=== PATIENT | female | born 1975 | race Caucasian/White ===

== ENCOUNTER 2016-12-08 23:52 | Emergency (ER) | payer SELFPAY ==
[2016-12-09 00:47] LABS: BASOPHILS 0.3 % (0-2); EOSINOPHILS 2.6 % (0-7); HEMATOCRIT 28.1 % (36.0-48.0); HEMOGLOBIN 9.2 g/dL (12-16); IMMATURE GRANULOCYTES 0.1 % (0-5); LYMPHOCYTES 26.7 % (15-50); MCH 28.5 pg (26.0-34.0); MCHC 32.7 g/dL (31.0-37.0); MEAN PLATELET VOLUME 10.7 fL (7.4-10.4); NEUTROPHILS 63.3 % (40-80); PLATELET COUNT 288 10x3/uL (130-400); RBC 3.23 10x6/uL (4.00-5.40); RDW 12.4 % (11.5-14.5); WBC 9.1 10x3/uL (4.8-10.8)
[2016-12-09 00:54] LABS: ALBUMIN 3.1 g/dL (3.4-5.0); ALKALINE PHOSPHATASE 66 U/L (46-116); ALT (SGPT) 15 U/L (10-68); CALC OSMOLALITY 278 mosm/kg (275-300); CALCIUM 8.2 mg/dL (8.5-10.1); CARBON DIOXIDE 29.2 mmol/L (21.0-32.0); CHLORIDE - SERUM 106 mmol/L (98-107); CREATININE - SERUM 0.8 mg/dL (0.6-1.3); GLUCOSE 87 mg/dL (74-106); POTASSIUM - SERUM 3.7 mmol/L (3.5-5.1); PROTEIN - SERUM 6.6 g/dL (6.4-8.2); SODIUM 140 mmol/L (136-145); UREA NITROGEN 14 mg/dL (7-18); eGFR NON AFRICAN AMERICAN 84 mL/min (90-120)
[2016-12-09 00:55] LABS: BILIRUBIN - TOTAL 0.08 mg/dL (0.2-1.3)
== END 2016-12-09 01:16 | disposition home or self-care (01) ==
LOC: D.ER 23:52
PROVIDERS: Emergency Medicine
DX: N93.9 Abnormal uterine and vaginal bleeding, unspecified (principal); D64.9 Anemia, unspecified

== ENCOUNTER 2016-12-13 02:26 | Emergency (ER) | payer SELFPAY | END 2016-12-13 03:44 | disposition home or self-care (01) | LOC: D.ER 02:26 | DX: D50.0 Iron deficiency anemia secondary to blood loss (chronic) (principal); N93.9 Abnormal uterine and vaginal bleeding, unspecified; N94.6 Dysmenorrhea, unspecified; F17.200 Nicotine dependence, unspecified, uncomplicated ==

== ENCOUNTER 2020-05-19 16:33 | Observation (INO) | payer MEDICAID ==
[~2020-05-19] VITALS: Ht 175.3 cm; Wt 92.7 kg
[2020-05-19] MEDS ORDERED: XANAX0.5 MG PO (17:01)
[2020-05-19 18:15] LABS: BASOPHILS 0.5 % (0-2); EOSINOPHILS 2.5 % (0-7); HEMATOCRIT 23.2 % (36.0-48.0); IMMATURE GRANULOCYTES 0.2 % (0-5); LYMPHOCYTE ABS# 2.49 10x3/uL (1.18-3.74); LYMPHOCYTES 26.9 % (15-50); MCHC 27.2 g/dL (31.0-37.0); MCV 65.2 fL (80.0-100.0); MEAN PLATELET VOLUME 9.4 fL (7.4-10.4); MONOCYTES 7.2 % (2-11); NEUTROPHILS 62.7 % (40-80); RBC 3.56 10x6/uL (4.00-5.40); RDW 16.9 % (11.5-14.5); WBC 9.3 10x3/uL (4.8-10.8)
[2020-05-19 18:29] LABS: CALC OSMOLALITY 273 mosm/kg (275-300); CALCIUM 8.5 mg/dL (8.5-10.1); CARBON DIOXIDE 27.4 mmol/L (21.0-32.0); CHLORIDE - SERUM 102 mmol/L (98-107); CREATININE - SERUM 0.8 mg/dL (0.6-1.3); GLUCOSE 89 mg/dL (74-106); POTASSIUM - SERUM 3.2 mmol/L (3.5-5.1); SODIUM 137 mmol/L (136-145); UREA NITROGEN 14 mg/dL (7-18); eGFR NON AFRICAN AMERICAN 83 mL/min (90-120)
[2020-05-19 18:30] LABS: HCG SERUM NEGATIVE (NEGATIVE)
[2020-05-19 18:36] LABS: ALBUMIN 3.9 g/dL (3.4-5.0); ALKALINE PHOSPHATASE 86 U/L (30-120); ALT (SGPT) 21 U/L (10-68); BILIRUBIN - TOTAL 0.14 mg/dL (0.2-1.3); PROTEIN - SERUM 7.6 g/dL (6.4-8.2)
[2020-05-19 18:41] LABS: HEMOGLOBIN 6.3 g/dL (12-16); MCH 17.7 pg (26.0-34.0); PLATELET COUNT 417 10x3/uL (130-400)
--- NOTE | 2020-05-19 22:11 | NUR ---
PT NOW BACK FROM US, YESI PERFORMED VAG EXAM, PT TOLERATED WELL, NO BIG CLOTS AT THIS TIME
--- NOTE | 2020-05-19 22:50 | NUR ---
PT TO LABOR UNIT VIA WHEELCHAIR FROM ER. TO ROOM 1274.
--- NOTE | 2020-05-19 22:53 | NUR ---
PT TO BATHROOM, NO VAGINAL BLEEDING NOTED. PT GIVEN A PAD AND INSTRUCTED TO CALL ME WHEN SHE DISCARDS ANY OF HER PADS SO I CAN GET AN ACCURATE BLOOD LOSS. PT VERBALIZES UNDERSTANDING.
[2020-05-19 22:55] VITALS: BP 121/57
--- NOTE | 2020-05-19 22:55 | NUR ---
TRANSFUSION STARTED AT 50ML/HR.
--- NOTE | 2020-05-19 22:55 | NUR ---
PATIENT NAME,,BLOOD BAND NUMBER, BLOOD TYPE, UNIT NUMBER,TYPE AND EXPIRATION ALL REVIEWED AND VERIFIED WITH JAZLYN STRINGER AT THIS TIME. BLOOD TRANSFUSION STARTED AT THIS TIME.
[2020-05-19 22:59] VITALS: BP 121/57; Ht 175.3 cm; Wt 92.7 kg
[2020-05-19 23:10] VITALS: BP 116/55
--- NOTE | 2020-05-19 23:10 | NUR ---
NO REACTION NOTED, TRANSFUSION RATE CHANGED TO 75ML/HR.
--- NOTE | 2020-05-19 23:21 | NUR ---
DR MORALEZ PAGED WITH IMMEDIATE CALL BACK, REPORTED PT REQUEST FOR HOME MEDICATION OF XANAX 0.5MG PO QHS, NEW ORDERS NOTED.
[2020-05-19 23:25] VITALS: BP 96/51
--- NOTE | 2020-05-19 23:25 | NUR ---
NO REACTION NOTED, TRANSFUSION RATE INCREASED TO 125ML/HR.
--- NOTE | 2020-05-19 23:35 | NUR ---
XANAX 0.5MG PO PER PT REQUEST AND MD ORDER. SPRITE,CHICKEN BROTH AND JELLO PROVIDED. PT TALKING ON THE PHONE WITH FAMILY, NO FURTHER NEEDS IDENTIFIED. BED LOCKED IN LOW POSITION AND SIDE RAILS UPX2. CALL SLOAN AND TRAY TABLE IN REACH.
--- NOTE | 2020-05-20 00:09 | NUR ---
NO REACTION NOTED, TRANSFUSION RATE CHANGED TO 150ML/HR. PATIENT ASSISTED UP TO BATHROOM, VOIDED WITHOUT DIFFICULTY, TWO SMALL CLOTS NOTED IN TOILET AND PTS PERIPAD WITH SMALL AMOUNT OF BLOOD NOTED. CLEAN PAD AND PANTIES PROVIDED. PT BACK TO BED. NO FURTHER NEEDS IDENTIFIED. WILL CONTINUE TO MONITOR.
--- NOTE | 2020-05-20 01:10 | NUR ---
PATIENT SLEEPING AT THIS TIME, RESPIRATIONS EVEN AND NON LABORED. BLOOD CONTINUES TO INFUSE WITH NO REACTIONS NOTED.
--- NOTE | 2020-05-20 01:55 | NUR ---
BLOOD TRANSFUSION COMPLETED, NO REACTIONS NOTED. PT RESTING QUIETLY WITH EYES CLOSED AND EVEN RESPIRATIONS. IV FLUSHED WITH 10 ML NS AND SALINE LOCKED.
--- NOTE | 2020-05-20 02:38 | NUR ---
PT NAME,,BLOOD WRIST BAND NUMBER, BLOOD TYPE, UNIT NUMBER,TYPE AND EXPIRATION ALL VERIFIED AT THIS TIME WITH JAZLYN STRINGER.
--- NOTE | 2020-05-20 02:44 | NUR ---
BLOOD TRANSFUSION INITIATED AT 50ML/HR.
--- NOTE | 2020-05-20 02:59 | NUR ---
NO TRANSFUSION REACTION NOTED, INFUSION RATE CHANGE TO 75ML/HR
--- NOTE | 2020-05-20 03:15 | NUR ---
NO TRANSFUSION REACTION NOTED, RESPIRATIONS EVEN AND NON LABORED. INFUSION RATE CHANGED TO 150ML/HR
--- NOTE | 2020-05-20 04:15 | NUR ---
PATIENT RESTING WITH EYES CLOSED, AUDIBLE SNORING NOTED. NO DISTRESS, WILL CONTINUE TO MONITOR.
--- NOTE | 2020-05-20 04:58 | NUR ---
PATIENT CONTINUES TO SLEEP WITH AUDIBLE SNORING. NO DISTRESS NOTED. BLOOD TRANSFUSION COMPLETED, IV FLUSHED WITH NORMAL SALINE. NO NEEDS IDENTIFIED.
--- NOTE | 2020-05-20 07:00 | NUR ---
report to am shift to assume pt care.
--- NOTE | 2020-05-20 07:45 | NUR ---
ROUNDS MADE BY DR MORALEZ.
[2020-05-20 08:20] LABS: BASOPHILS 0.9 % (0-2); EOSINOPHILS 4.3 % (0-7); HEMATOCRIT 24.6 % (36.0-48.0); IMMATURE GRANULOCYTES 0.2 % (0-5); LYMPHOCYTE ABS# 1.99 10x3/uL (1.18-3.74); LYMPHOCYTES 33.8 % (15-50); MCH 20.5 pg (26.0-34.0); MCHC 29.3 g/dL (31.0-37.0); MEAN PLATELET VOLUME 9.4 fL (7.4-10.4); MONOCYTES 8.8 % (2-11); NEUTROPHIL ABS# 3.06 10x3/uL (1.56-6.13); RBC 3.51 10x6/uL (4.00-5.40); RDW 21.2 % (11.5-14.5)
[2020-05-20 08:29] LABS: WBC 5.9 10x3/uL (4.8-10.8)
[2020-05-20 08:30] LABS: HEMOGLOBIN 7.2 g/dL (12-16); MCV 70.1 fL (80.0-100.0); PLATELET COUNT 307 10x3/uL (130-400)
--- NOTE | 2020-05-20 10:05 | NUR ---
PT SITTING UP IN BED WATCHING TV, DENIES PAIN OR DISCOMFORT. STATES THAT WHEN SHE GOT UP TO BATHROOM THERE WAS NO BLEEDING, ALSO DENIES DIZZINESS OR FELLING FAINT WHEN GETTING UP FROM BED/WALKING. CALL LIGHT AND PHONE WITHIN REACH.
--- NOTE | 2020-05-20 10:56 | NUR ---
LAB AND US RESULTS RECEIVED. DR MORALEZ PAGED.
--- NOTE | 2020-05-20 13:00 | NUR ---
ORDERS RECEIVED BY PHONE FROM DR MORALEZ, PT IS TO RECIEVE 1UNIT PRBC THAN JULY D/C HOME AND TO FOLLOW UP WITH MD AT [facility].
--- NOTE | 2020-05-20 13:30 | NUR ---
PLAN OF CARE GONE OVER WITH PT. SHE DENIES ANY CONCERNS OR QUESTIONS AT THIS TIME. LIGHT TURNED OFF REQUESTED.
--- NOTE | 2020-05-20 14:40 | NUR ---
NOTIFIED FROM BLOOD BANK THAT UNIT IS READY.
--- NOTE | 2020-05-20 15:15 | NUR ---
PRBC VERIFIED WITH Kadi SHAIKH RN AT BEDSIDE.
--- NOTE | 2020-05-20 15:30 | NUR ---
PRBC INFUSING AT 100ML/HR X 50ML. VSS. PT PROVIDED WITH LARGE CUP OF ICE AND COLA REQUESTED.
--- NOTE | 2020-05-20 15:40 | NUR ---
PT DENIES ANY DISCOMFORT, INFUSING INCREASED TO 200ML/HR. LIGHTS TURNED OFF REQUESTED. CALL LIGHT IN REACH AND SIDE RAILS UP X 2.
[2020-05-20 16:00] VITALS: BP 109/58
--- NOTE | 2020-05-20 16:00 | NUR ---
PT TEXTING ON HER PHONE, DENIES PAIN OR DISCOMFORT AT THIS TIME AND VOICES NO NEEDS. CALL LIGHT IN REACH.
--- NOTE | 2020-05-20 17:00 | NUR ---
TRANSFUSION COMPLETED AND FLUSHED WITH 100ML NS WITHOUT DIFFICULTY. IV REMOVED WITH CATH INTACT. PT ASKING IF SHE COULD EAT HER DINNER AND SHOWER BEFORE DISCHARGED. REASSURED HER THAT WAS NOT A PROBLEM. PROVIDED HER WITH TOWELS AND SHOWER SUPPLIES. INSTRUCTED TO CALL WHEN READY FOR D/C INSTRUCTIONS.
--- NOTE | 2020-05-20 18:30 | NUR ---
PT CALLS OUT THAT SHE IS READY FOR DISCHARGE. VERBAL AND WRITTEN INSTRUCTIONS GONE OVER WITHOUT QUESTIONS OR CONCERNS. TAKEN OUT BY WHEELCHAIR, HOME BY PRIVATE CAR WITH FAMILY MEMBER
== END 2020-05-20 18:30 | disposition home or self-care (01) ==
LOC: D.ER 16:33 → OBSVTIME 21:47 → D.ER 21:47 → D.EDHOLD 21:47 → D.LD 21:47 → D.EDHOLD 21:47 → D.LD 21:53 → D.EDHOLD 21:53 → D.LD 05-20 18:30 → D.EDHOLD 05-20 18:30
PROVIDERS: Family Medicine; ADMIT Obstetrics & Gynecology; ATTEND Obstetrics & Gynecology
DX: N93.8 Other specified abnormal uterine and vaginal bleeding (principal); D64.9 Anemia, unspecified

== ENCOUNTER 2020-05-25 18:26 | Emergency (ER) | payer OTHER ==
[~2020-05-25] VITALS: Ht 175.3 cm; Wt 92.7 kg
[~2020-05-25 18:26] MED LIST: XANAX0.5 MG PO
[2020-05-25 18:30] VITALS: Ht 175.3 cm; Wt 92.7 kg
[2020-05-25 18:57] LABS: BASOPHILS 0.5 % (0-2); EOSINOPHILS 2.8 % (0-7); HEMATOCRIT 32.8 % (36.0-48.0); HEMOGLOBIN 9.6 g/dL (12-16); IMMATURE GRANULOCYTES 0.1 % (0-5); LYMPHOCYTE ABS# 2.42 10x3/uL (1.18-3.74); LYMPHOCYTES 30.9 % (15-50); MCH 21.1 pg (26.0-34.0); MCHC 29.3 g/dL (31.0-37.0); MCV 71.9 fL (80.0-100.0); MEAN PLATELET VOLUME 9.5 fL (7.4-10.4); MONOCYTES 7.3 % (2-11); NEUTROPHIL ABS# 4.57 10x3/uL (1.56-6.13); NEUTROPHILS 58.4 % (40-80); PLATELET COUNT 332 10x3/uL (130-400); RBC 4.56 10x6/uL (4.00-5.40); RDW 23.2 % (11.5-14.5); WBC 7.8 10x3/uL (4.8-10.8)
[2020-05-25 19:08] LABS: ANION GAP 8.2 mmol/L (8-16); CALCIUM 8.6 mg/dL (8.5-10.1); CARBON DIOXIDE 28.6 mmol/L (21.0-32.0); CREATININE - SERUM 0.9 mg/dL (0.6-1.3); POTASSIUM - SERUM 3.8 mmol/L (3.5-5.1)
[2020-05-25 19:11] LABS: HCG SERUM NEGATIVE (NEGATIVE)
[2020-05-25 19:14] LABS: ALBUMIN 3.6 g/dL (3.4-5.0); BILIRUBIN - TOTAL 0.23 mg/dL (0.2-1.3); PROTEIN - SERUM 7.6 g/dL (6.4-8.2)
[2020-05-25 22:52] VITALS: BP 109/62
== END 2020-05-25 22:53 | disposition home or self-care (01) ==
LOC: D.ER 18:26
PROVIDERS: Family Medicine
DX: N93.9 Abnormal uterine and vaginal bleeding, unspecified (principal); R53.1 Weakness

== ENCOUNTER → 2020-05-27 12:13 | Outpatient (CLI) | payer OTHER ==
[2020-05-25 18:30] VITALS: BMI 30.2
[2020-05-27 13:15] LABS: BASOPHILS 0.5 % (0-2); EOSINOPHILS 2.3 % (0-7); HEMATOCRIT 32.8 % (36.0-48.0); HEMOGLOBIN 9.5 g/dL (12-16); LYMPHOCYTE ABS# 1.74 10x3/uL (1.18-3.74); LYMPHOCYTES 28.2 % (15-50); MCH 21.2 pg (26.0-34.0); MCV 73.2 fL (80.0-100.0); MONOCYTES 6.3 % (2-11); NEUTROPHIL ABS# 3.87 10x3/uL (1.56-6.13); NEUTROPHILS 62.7 % (40-80); PLATELET COUNT 293 10x3/uL (130-400); RBC 4.48 10x6/uL (4.00-5.40); RDW 23.1 % (11.5-14.5); WBC 6.2 10x3/uL (4.8-10.8)
[2020-05-27 13:32] LABS: INR 1.12 (0.85-1.17); PROTIME 13.4 SECONDS (11.6-15.0)
[2020-05-27 13:33] LABS: APTT 28.2 SECONDS (22.8-39.4)
== END | disposition home or self-care (01) ==
LOC: D.LAB 12:13
PROVIDERS: ATTEND Obstetrics & Gynecology
DX: Z01.419 Encounter for gynecological examination (general) (routine) without abnormal findings (principal)

== ENCOUNTER 2020-05-28 10:35 | Day surgery (SDC) | payer OTHER ==
[~2020-05-28] VITALS: Ht 175.3 cm; Wt 90.3 kg
--- NOTE | ~2020-05-28 | OP ---
PATIENT NAME: CHERRIE RIDDLE MEDICAL RECORD: [id number] :77 LOCATION:.[facility] ADMISSION DATE: SURGEON: MAO TRUJILLO MD DATE OF OPERATION: 05/28/2020 PREOPERATIVE DIAGNOSES: 1. Menorrhagia. 2. Anemia. POSTOPERATIVE DIAGNOSES: 1. Menorrhagia. 2. Anemia. PROCEDURE: Hysteroscopy, D&C. SURGEON: Mao Trujillo. ANESTHESIA: General endotracheal. INTRAVENOUS FLUIDS: Per anesthesia record. ESTIMATED BLOOD LOSS: 1000 cc. FINDINGS: Proliferative appearing endometrium as well as grossly normal-appearing external genitalia. DESCRIPTION OF PROCEDURE: The patient was taken to the operating room where general anesthesia was achieved without difficulty. The patient was then prepped and draped in normal sterile fashion in the dorsal lithotomy position in the [facility]. The patient was then straight catheterized for approximately 100 cc of clear yellow urine. At this point, a Graves speculum was placed into the vagina and the cervix was grasped on its anterior lip with single tooth tenaculum. The uterus sounded to approximately 9 cm. At this point, the patient was dilated to approximately 5 cm and the hysteroscope was introduced into the uterus. Survey of the proliferative appearing endometrium was performed and then a D&C was performed in all 4 quadrants with copious return of proliferative appearing tissue. Only scant bleeding was noted by the end of the case. A second look was performed with the hysteroscope following the curettage and no evidence of perforation was noted. The tenaculum and speculum was removed. The patient tolerated the procedure well and was transported to postanesthesia recovery stable without incident. TRANSINT:[id number] Voice Confirmation ID: [id number] DOCUMENT ID: [id number] MAO TRUJILLO MD CC: [id number] DICTATION DATE: 06/04/20 0831 BIOLOGICAL SCIENCE AIDE: 06/04/20 1018 [facility] 05/28/20 [place] [id number] [place] [id number]
[2020-05-28 12:14] VITALS: BP 122/65; Ht 175.3 cm; Wt 90.3 kg
--- NOTE | 2020-05-28 14:46 | NUR ---
PT RATES PAIN "MEDIUM", STATES "I DON'T WANT ANYTHING FOR PAIN"
--- NOTE | 2020-05-28 14:55 | NUR ---
PT NOW REQUESTS PAIN MEDICATION
--- NOTE | 2020-05-28 15:50 | NUR ---
1545 IV REMOVED AND PRESSURE HELD
== END 2020-05-28 16:10 | disposition home or self-care (01) ==
LOC: D.OPS 10:35
PROVIDERS: ATTEND Obstetrics & Gynecology
DX: N92.1 Excessive and frequent menstruation with irregular cycle (principal); D64.9 Anemia, unspecified

== ENCOUNTER 2020-06-17 15:38 | Inpatient (IN) | payer OTHER ==
[~2020-06-17] VITALS: Ht 175.3 cm; Wt 91.4 kg
[2020-06-17 12:00] LABS: CALC OSMOLALITY 276 mosm/kg (275-300); CALCIUM 8.9 mg/dL (8.5-10.1); CARBON DIOXIDE 28.4 mmol/L (21.0-32.0); CHLORIDE - SERUM 104 mmol/L (98-107); CREATININE - SERUM 0.7 mg/dL (0.6-1.3); GLUCOSE 89 mg/dL (74-106); SODIUM 139 mmol/L (136-145); UREA NITROGEN 13 mg/dL (7-18); eGFR NON AFRICAN AMERICAN > 90 mL/min (90-120)
[2020-06-17 12:01] LABS: HEMATOCRIT 32.1 % (36.0-48.0); HEMOGLOBIN 9.3 g/dL (12-16); LYMPHOCYTES 39.6 % (15-50); MCH 21.8 pg (26.0-34.0); MCV 75.2 fL (80.0-100.0); MEAN PLATELET VOLUME 10.3 fL (7.4-10.4); NEUTROPHILS 50.7 % (40-80); PLATELET COUNT 290 10x3/uL (130-400); RBC 4.27 10x6/uL (4.00-5.40); RDW 22.6 % (11.5-14.5); WBC 4.3 10x3/uL (4.8-10.8)
[2020-06-17 13:05] LABS: APTT 28.5 SECONDS (22.8-39.4); INR 1.13 (0.85-1.17); PROTIME 13.4 SECONDS (11.6-15.0)
[2020-06-20] VITALS (17 sets, daily range): BP systolic 89–129; BP diastolic 56–82; Ht 175.3 cm; Wt 91.4 kg
[2020-06-20 08:42] LABS: HCG URINE NEGATIVE (NEGATIVE)
--- NOTE | 2020-06-20 14:47 | NUR ---
PT RECEIVED VIA BED FROM PACU, FREQUENTLY DROWSY BUT RESPONDS TO VOICE, VSS. PT C/O PAIN AND MOANING WHEN WAKEFUL, WILL SET UP AGRICULTURAL AGENT ORDERED. LF INFUSING ORDERED TO LEFT HAND/WRIST PIV. HR REG, RESP EVEN AND UNLABORED, BS PRESENT BUT HYPOACTIVE x4 QUAD. ABD SOFT, BLADDER NON-DISTENDED WITH 280ML CLEAR GREEN TINTED URINE NOTED IN MCKNIGHT. UROMETER, FROM BLUE DYE IN O.R.. ABD INC COVERED WITH OCCLUSIVE DRESSING. SLIGHT RED DRAINAGE NOTED MIDLINE TO DRESSING, WILL MONITOR. PERIPAD PLACED TO PERINEUM TO MONITOR FOR BLEEDING. SCD'S ON LE BILAT AND ON PUMP. SRUx2, CL IN REACH.
--- NOTE | 2020-06-20 15:07 | NUR ---
DILAUDID DIRECTOR PRISON SET UP ORDERED AND PRN BOLUS DOSE GIVEN PER ORDER FOR PAIN RATED 10/10. PT AND DAUGHTER INSTRUCTED ON USE OF DIRECTOR PRISON BUTTON, UNDERSTANDING VERBALIZED. CONTINUOUS PULSE OX REMAINS ON PT. SRUx2, CL IN REACH. SEE EMAR AND FLOWSHEET FOR DIRECTOR PRISON SETUP DOC.
[2020-06-20 15:08] LABS: BASOPHILS 0.1 % (0-2); EOSINOPHILS 0.1 % (0-7); HEMATOCRIT 32.8 % (36.0-48.0); HEMOGLOBIN 9.9 g/dL (12-16); IMMATURE GRANULOCYTES 0.2 % (0-5); LYMPHOCYTE ABS# 0.69 10x3/uL (1.18-3.74); LYMPHOCYTES 4.6 % (15-50); MCH 22.3 pg (26.0-34.0); MCHC 30.2 g/dL (31.0-37.0); MCV 73.9 fL (80.0-100.0); MONOCYTES 0.9 % (2-11); NEUTROPHIL ABS# 14.04 10x3/uL (1.56-6.13); NEUTROPHILS 94.1 % (40-80); RBC 4.44 10x6/uL (4.00-5.40); RDW 22.3 % (11.5-14.5); WBC 14.9 10x3/uL (4.8-10.8)
[2020-06-20 15:09] LABS: PLATELET COUNT 222 10x3/uL (130-400)
[2020-06-20 15:26] LABS: ANION GAP 13.1 mmol/L (8-16); CALCIUM 8.2 mg/dL (8.5-10.1); CARBON DIOXIDE 24.4 mmol/L (21.0-32.0); CREATININE - SERUM 0.9 mg/dL (0.6-1.3); POTASSIUM - SERUM 3.5 mmol/L (3.5-5.1)
--- NOTE | 2020-06-20 16:38 | NUR ---
PT RESTING QUIELTY, RESP EVEN AND UNLABORED. PT TURNED TO LEFT SIDE. 80ML GREEN TINTED URINE EMPTIED FROM UROMETER. ABD DRESSING UNCHANGED. PERIPAD DRY. PT VERY DROWSY BUT RESPONDS TO VOICE. INSTRUCTED TO COUGH, REFUSES TO COUGH AT THIS TIME. EDUCATION REINFORCED, WILL REATTEMPT COUGH LATER. PT DAUGHTER AT BEDSIDE. SRUx2, CL AND OFFSET PRESSMAN BUTTON IN REACH.
--- NOTE | 2020-06-20 17:40 | NUR ---
PT SPOUSE TO ROOM. PT AWAKENS TO VOICE, REQUESTS ICE CHIPS, DENIES NAUSEA. ICE CHIPS GIVEN, PT ABLE TO CHEW AND EAT ICE. TOOL SPECIALIST TEACHING AND CLEAR LIQUID DIET REINFORCED TO PT AND SPOUSE. VERBALIZES UNDERSTANDING AND PRESSES TOOL SPECIALIST BUTTON. SRUx2, CL IN REACH. CLEAR LIQUID TRAY SETUP AT BEDSIDE.
--- NOTE | 2020-06-20 17:49 | NUR ---
DR MORALEZ PHONED WITH REPORT ON POST-OP LABS INCLUDING GLUCOSE OF 161. ORDER RECEIVED TO RECHECK BLOOD SUGAR AT 4 HOURS AND NOTIFY MD PLATE DRILLER IF NOT WNL.
--- NOTE | 2020-06-20 19:00 | NUR ---
REPORT TO JAZLYN TURNER
--- NOTE | 2020-06-20 19:29 | NUR ---
SIGNIFICANT OTHER AT PT.'S BEDSIDE UPON ENTERING ROOM. BEDSIDE REPORT RECEIVED. PT. REPORTS PAIN AT "10" ON 0-10 SCALE. TORADOL 30 MG ADMINISTERED SIVP. DISCUSSED PT.'S CONTINUED USE OF DELIVERY SPECIALIST BUTTON.
--- NOTE | 2020-06-20 19:40 | NUR ---
TO PT.'S BEDSIDE FOR VITALS AND ASSESSMENT. INTRODUCED SELF TO PT. AND PT.'S S/O AT BEDSIDE. DISCUSSED CONTINUED PLAN OF CARE WTIH PT. CONCERNING CONTINUED DRIVER GUARD FOR PAIN RELIEF AND TORADOL ORDERED. DISCUSSED WITH PT. THE IMPORTANCE OF T/C/DB AND INSTRUCTED REGARDING USE OF INCENTIVE SPIROMETER. PT. ONLY ABLE TO GET TO 1000 ON THE CHAMBER AT THIS TIME. VITALS AND ASSESSMENT COMPLETED. SEE FLOWSHEET. PT. REPORTS PAIN AT "10" ON 0-10 SCALE. PT. ENCOURAGED TO USE DRIVER GUARD BUTTON OFTEN NEEDED IT WILL NOT GIVE HER MORE THAN SHE CAN HAVE. PT. VERBALIZES UNDERSTANDING BUT REPORTS "IM JUST TRYING TO WAKE UP OFF THIS ANESTHESIA". RESP. ARE SHALLOW BUT EVEN. BREATH SOUNDS CLEAR THROUGHOUT. PT. IS "FROGGY" WHEN SPEAKING AND IS INSTRUCTED THAT THIS COULD POSSIBLY BE FROM BEING INTUBATED OR HER THROAT IS REALLY DRY. PT. VERBALIZES UNDERSTANDING. PT. ENCOURAGED TO CONTINUE TO SLOWLY SIP WATER OR SPRITE. PT. VERBALIZES UNDERSTANDING. BOWEL SOUNDS HYPOACTIVE X 4. PT. DENIES PASSING GAS AT THIS TIME. BIKINI LINE INCISION WITH ABDOMINAL DRESSING IS C/D/I. MCKNIGHT INTACT AND DRAINING DARK BLUE URINE FROM METHYLINE BLUE ADMINISTERED IN OR. PT. WITH 20 G. IV CATH IN LEFT WRIST INFUSING LR AT 125 ML/HR. REPORTS "IM GOING TO GO HOME TONIGHT BUT ILL BE BACK FIRST THING IN THE MORNING." S/O PROVIDED WITH KATJA AND POST IT TO LEAVE PHONE NUMBER. CALL LIGHT IN REACH. SIDE RAILS UP X 2. PHONE TO BEDSIDE. WILL CONT. TO MONITOR.
--- NOTE | 2020-06-20 20:27 | NUR ---
PT. AWAKE MORE AT THIS TIME AND VISITING WITH SON AT BEDSIDE. INQUIRED WITH PT. IF HER PAIN IS BETTER AT THIS TIME AND PT. REPORTS "KIND OF". PT. NOW RATES PAIN AT "8" ON 0-10 SCALE. NO SIGNS OF DISTRESS NOTED. PT. NOT GRIMACING OR APPEARS IN IMENSE PAIN. WILL CONT. TO MONITOR. PT. DENIES NEEDS.
--- NOTE | 2020-06-20 20:42 | NUR ---
PT. REQUEST SPRITE TO DRINK AT THIS TIME. OFFERED PT. A POPSICLE ALSO TO HELP SOOTHE THROAT. PT. REQUEST AT THIS TIME. TALKING ON PHONE AND TEXTING. CONTINUES TO REPORT PAIN AT "8".
--- NOTE | 2020-06-20 20:48 | NUR ---
LARGE SPRITE AND ORANGE POPSICLE PROVIDED.
--- NOTE | 2020-06-20 21:04 | NUR ---
ZOFRAN 4 MG ADMINISTERED SIVP PER MD ORDERS AND PT. REPORT OF "A LITTLE NAUSEATED" WHEN SIPPING ON SOUP. 100 MLS DARK BLUISH GREEN URINE EMPTIED FROM MCKNIGHT CATH CHAMBER TO BAG. PT. ENCOURAGED TO INCREASE ORAL INTAKE ONCE NAUSEA SUBSIDES TO HELP INCREASE URINE OUTPUT. PT. VERBALIZES UNDERSTANDING AND DENIES FURTHER NEEDS AT THIS TIME.
--- NOTE | 2020-06-20 22:45 | NUR ---
PT. LYING IN SUPINE POSITION UPON ENTERING ROOM. PT. TEXTING ON PHONE AT THIS TIME. 125 MLS LIGHT BLUISH GREEN URINE EMPTIED FROM MCKNIGHT CHAMBER TO BAG. PT. REQUEST ANOTHER SPRITE AT THIS TIME AND DENIES ANY FURTHER NEEDS. PT. CONTINUES TO REPORT PAIN IS AT "8" ON 0-10 SCALE.
--- NOTE | 2020-06-20 22:52 | NUR ---
LARGE SPRITE PROVIDED. BLOOD PRESSURE REMAINS WNL. INSTRUCTED PT. WE MAY REMOVE CUFF AND JUST GET BP EVERY 4 HOURS BUT THAT THE PULSE OX HAS TO REMAIN ON SINCE SHE IS STILL ON THE DRONE OPERATOR. PT. INQUIRES "WHAT KIND OF PAIN MEDICATION AM I ON". INSTRUCTED PT. THAT SHE IS ON A DILAUDID DRONE OPERATOR. PT. VERBALIZES UNDERSTANDING AND REPORTS "I WAS JUST WONDERING BECAUSE SOMETIMES SOME PAIN MEDICATIONS CAN MAKE ME SICK". INQUIRED IF PT. IS CONTINUING TO HAVE NAUSEA AND PT. DENIES AT THIS TIME. DENIES ANY FURTHER NEEDS OR CONCERNS AT THIS TIME.
--- NOTE | 2020-06-20 23:10 | NUR ---
PT. RESTING IN SUPINE POSITION WITH EYES CLOSED. NO SIGNS OF DISTRESS NOTED. RESP. ARE EVEN AND UNLABORED. 200 MLS LIGHT BLUISH GREEN URINE EMPTIED FROM CHAMBER TO MCKNIGHT BAG. WILL CONT. TO MONITOR.
--- NOTE | 2020-06-21 00:15 | NUR ---
PT. RESTING COMFORTABLY WITH EYES CLOSED UPON ENTERING ROOM. RESP. ARE EVEN AND UNLABORED. 200 MLS LIGHT GREEN URINE EMPTIED FROM MCKNIGHT CHAMBER TO BAG. PT. NOT DISTURBED AT THIS TIME.
--- NOTE | 2020-06-21 01:34 | NUR ---
TORADOL 30 MG ADMINISTERED SIVP PER MD ORDERS. PT. ASLEEP UPON ENTERING ROOM BUT AWAKENS EASILY WITH VERBAL STIMULATION. 350 MLS LIGHT GREEN URINE EMPTIED FROM MCKNIGHT CHAMBER TO BAG.
[2020-06-21 01:36] VITALS: BP 103/55
--- NOTE | 2020-06-21 04:52 | NUR ---
LAB HERE FOR AM DRAW
[2020-06-21 05:00] VITALS: BP 106/58
--- NOTE | 2020-06-21 05:02 | NUR ---
DILAUDID SOUND EQUIPMENT MECHANIC BOLUS DOSE ADMINISTERED VIA IV PUMP PER MD ORDERS AND PT.'S REPORT OF PAIN THIS MORNING THAT RATES AT "7" ON 0-10 SCALE. 350 MLS LIGHT GREENISH URINE EMPTIED FROM MCKNIGHT CATH CHAMBER TO BAG. VITALS TAKEN. SEE FLOWSHEET. PT. DENIES FURTHER NEEDS AT THIS TIME.
[2020-06-21 05:59] LABS: BASOPHILS 0.1 % (0-2); EOSINOPHILS 0 % (0-7); HEMATOCRIT 32.2 % (36.0-48.0); HEMOGLOBIN 9.7 g/dL (12-16); IMMATURE GRANULOCYTES 0.2 % (0-5); LYMPHOCYTE ABS# 1.19 10x3/uL (1.18-3.74); LYMPHOCYTES 10.1 % (15-50); MCH 22.5 pg (26.0-34.0); MCHC 30.1 g/dL (31.0-37.0); MCV 74.5 fL (80.0-100.0); MONOCYTES 6.8 % (2-11); NEUTROPHIL ABS# 9.78 10x3/uL (1.56-6.13); NEUTROPHILS 82.8 % (40-80); PLATELET COUNT 226 10x3/uL (130-400); RBC 4.32 10x6/uL (4.00-5.40); RDW 22.5 % (11.5-14.5); WBC 11.8 10x3/uL (4.8-10.8)
[2020-06-21 06:17] LABS: CALC OSMOLALITY 279 mosm/kg (275-300); CALCIUM 8.1 mg/dL (8.5-10.1); CARBON DIOXIDE 25.2 mmol/L (21.0-32.0); CHLORIDE - SERUM 106 mmol/L (98-107); CREATININE - SERUM 0.7 mg/dL (0.6-1.3); GLUCOSE 124 mg/dL (74-106); POTASSIUM - SERUM 3.8 mmol/L (3.5-5.1); SODIUM 141 mmol/L (136-145); eGFR NON AFRICAN AMERICAN > 90 mL/min (90-120)
[2020-06-21 06:18] LABS: UREA NITROGEN 8 mg/dL (7-18)
--- NOTE | 2020-06-21 06:29 | NUR ---
PT. SLEEPING SOUNDLY UPON ENTERING ROOM. LYING IN LEFT SIDE LYING POSITION. MCKNIGHT CATH EMPTIED AT THIS TIME. PT. NOT DISTURBED.
[2020-06-21 07:30] VITALS: BP 106/57
--- NOTE | 2020-06-21 07:30 | NUR ---
PATIENT ASSESSMENT COMPLETED AT BEDSIDE. PATIENT DENIES NEEDS AT THIS TIME. PLAN OF CARE UPDATED AT PATIENTS BEDSIDE. PATIENT VERBALIZED UNDERSTANDING OF INFORMATION PROVIDED. LEFT WRIST PIV INFUSING WITH LR AND DILUADID BUSINESS RESILIENCY MANAGER PER ORDER. INCISION COVERED WITH DRESSING. CLEAN AND DRY. MCKNIGHT PRESENT DRAINING TO GRAVITY CLEAR BLUE URINE. SCD ON BILATERAL LOWER EXTREMITIES. REMOVED FOR SKIN ASSESSMENT. SIDE RAILS UP X2, BED IN LOW POSIITON, CALL LIGHT WITHIN REACH.
--- NOTE | 2020-06-21 11:30 | NUR ---
PATIENT SALINE LOCKED AT THIS TIME. MCKNIGHT REMOVED WITH 200 ML OF URINE. PATIENT DENIES NEEDS OR CONCERNS AT THIS TIME. PATIENT INSTRUCTED THAT SHE WILL AMBULATE IN 30 MINUTES OR SOONER.
--- NOTE | 2020-06-21 12:41 | NUR ---
PATIENT AMBULATED TO RESTROOM WITH ASSISTANCE BY RN. PERICARE PERFORMED BY PATIENT. PATIENT VOIDED WITHOUT DIFFICULTY POST MCKNIGHT REMOVAL. NEW GOWN, PANTIES, PAD AND ABDOMINAL BINDER APPLIED. PATIENT ASSISTED BACK TO BED WITHOUT DIFFICULTY. SIDE RAILS UP X2, BED IN LOW POSITION, CALL LIGHT WITHIN REACH.
--- NOTE | 2020-06-21 19:55 | NUR ---
REINTRODUCED SELF TO PT. NURSE TO PROVIDE CARE THIS SHIFT. DISCUSSED CONTINUED PLAN OF CARE WITH PT. CONCERNING AMBULATING THE HALLWAY THIS EVENING, NEEDS ONE MORE VOID, AND CONTINUED MEDICATIONS ORDERED FOR PAIN RELIEF. PT. REPORTS PAIN AT "8" ON 0-10 SCALE AT THIS TIME. INSTRUCTED PT. THAT SHE HAD HER NORCO AT 6PM THEREFORE I CANNOT GIVE IT AGAIN YET BUT THAT I WILL SEE IF SHE MAY HAVE THE MOTRIN YET. PT. VERBALIZES UNDERSTANDING. PT. CONCERNED REGARDING PAIN AT THIS TIME. INSTRUCTED PT. THAT I BELIEVE SHE IS HURTING SO BAD BECAUSE SHE WENT SO LONG WITHOUT TAKING ANYTHING BECAUSE SHE WAS ASLEEP. ADVISED PT. THAT THIS SECOND DAY IT IS BEST IF SHE TAKES THE MEDICATION LIKE ITS SCHEDULED.
[2020-06-21 20:02] VITALS: BP 94/51
--- NOTE | 2020-06-21 20:05 | NUR ---
20 G. SALINE LOCK IN LEFT HAND DISCONTINUED WITH CATH TIP INTACT. INSTRUCTED PT. THAT SHE DOES NOT NEED TO WEAR ABDOMINAL BINDER IN THE BED, ONLY WHEN SHE IS UP AND MOVING ABOUT. PT. VERBALIZES UNDERSTANDING. INSTRUCTED PT. THAT I WILL BRING HER 9PM MEDS SHORTLY. PT. VERBALIZES UNDERSTANDING AND DENIES FURTEHR QUESTIONS OR CONCERNS.
--- NOTE | 2020-06-21 22:00 | NUR ---
PT. SITTING UP IN SEMI FOWLERS POSITION SPEAKING WITH S/O ON CELLPHONE. INSTRUCTED PT. THAT I HAVE HER MEDICATIONS. PT. REPORTS TO S/O "LET ME CALL YOU BACK". WHEN PT. OFF OF PHONE I INQUIRE TO WHETHER OR NOT SHE HAS GOTTEN UP TO THE BATHROOM AGAIN OR NOT. PT. DENIES. INSTRUCTED PT. SHE NEEDS TO VOID ONE MORE TIME INTO NUNS CAP AND THAT SHE REALLY NEEDS TO TRY SOON. PT. VERBALIZES UNDERSTANDING AND REPORTS "I WILL IN A FEW MINUTES". INSTRUCTED PT. TO CALL IF SHE NEEDS ASSISTANCE. PT. VERBALIZES UNDERSTANDING.
--- NOTE | 2020-06-21 22:04 | NUR ---
NORCO 10/325 MG 1 TAB ADMINISTERED ORALLY PER MD ORDERS AND PT. COMPLAINT OF PAIN. XANAX 0.25 MG TWO TABLETS ADMINISTERED ORALLY PER MD ORDERS. PT. REPORTS PAIN IS "BETTER" NOW AND RATES PAIN AT "5" ON 0-10 SCALE. PT. DENIES FURTHER NEEDS AT THIS TIME. WILL CONT. TO MONITOR.
--- NOTE | 2020-06-21 23:28 | NUR ---
PT. COMING OUT OF BATHROOM UPON ENTERING ROOM. PT. REPORTS "I DID" WHEN ASKED IF SHE HAD URINATED YET. 500 MLS DARK BLUISH GREEN URINE EMPTIED FROM NUNS CAP. INSTRUCTED PT. SHE NO LONGER NEEDS TO KEEP SAVING NOW. PT. VERBALIZES UNDERSTANDING. PT. REPORTS PAIN AT "4" ON 0-10 SCALE NOW. FRESH ICE PACK AND LARGE COKE PROVIDED. WILL CONT. TO MONITOR.
[2020-06-22 02:05] VITALS: BP 104/54
--- NOTE | 2020-06-22 02:05 | NUR ---
PT. SLEEPING UPON ENTERING ROOM BUT HAS REQUESTED THAT PAIN MEDICINE BE GIVEN EVEN IF SHE IS ASLEEP SO SHE DOESN'T START HURTING LIKE SHE WAS EARLIER. PT. HAD GONE OVER 6 HOURS WITHOUT TAKING ANYTHING AND WAS HURTING VERY BADLY WHEN I GOT HERE THIS EVENING. PT. AWAKENS EASILY WITH VERBAL STIMULATION. PT. ADJUSTS SELF IN BED. REPORTS PAIN IS AT A "5" AND SAYS "BETTER THAN IT WAS EARLIER". VITALS TAKEN. SEE FLOWSHEET.
--- NOTE | 2020-06-22 02:09 | NUR ---
PT. MEDICATED WITH NORCO 10/325 MG 1 TAB AND MOTRIN 600 MG 1 TAB ORDERED PER MD ORDER AND PT.'S REQUEST. PT. REQUEST "CAN YOU TURN THE AIR DOWN". TEMP. ADJUSTED. WILL CONT. TO MONITOR.
--- NOTE | 2020-06-22 03:21 | NUR ---
PT. LYING IN SEMI FOWLERS POSITION WITH EYES CLOSED AND RESTING COMFORTABLY. NO SIGNS OF DISTRESS NOTED. RESP. ARE EVEN AND UNLABORED. PT. NOT DISTURBED AT THIS TIME.
--- NOTE | 2020-06-22 04:01 | NUR ---
PT. LYING IN SEMI FOWLERS POSITION WITH EYES CLOSED AND NO SIGNS OF DISTRESS NOTED. RESP. ARE EVEN AND UNLABORED. PT. NOT DISTURBED. WILL CONT. TO MONITOR.
--- NOTE | 2020-06-22 06:03 | NUR ---
PT. SLEEPING SOUNDLY UPON ENTERING ROOM. PT. AWAKENS WITH VERBAL STIMULATION AND INSTRUCTED THAT I HAVE HER PAIN MEDICATION FOR HER. PT. REPORTS PAIN IS AT "6" ON 0-10 SCALE. PT. MEDICATED WITH NORCO 10/325 MG 1 TAB PER MD ORDERS AND PT.'S REQUEST TO MEDICATE EVERY 4 HOURS. FRESH ICE PACK PROVIDED. PT. DENIES FURTHER NEEDS AT THIS TIME. WILL CONT. TO MONITOR.
--- NOTE | 2020-06-22 06:10 | NUR ---
PT. LYING IN LEFT SIDE LYING POSITION SLEEPING SOUNDLY UPON ENTERING ROOM. RESP. ARE EVEN AND UNLABORED WITH NO SIGNS OF DISTRESS NOTED. PT. NOT DISTURBED AT THIS TIME. WILL CONT. TO MONITOR.
[2020-06-22 07:35] VITALS: BP 99/49
--- NOTE | 2020-06-22 08:04 | NUR ---
PATIENT ASSESSMENT COMPLETED AT BEDSIDE. PATIENT RESTING BUT EASILY AWAKEN UPON RN ENTERING ROOM. NICOLETTECODYT COMPLAINS OF PAIN AT INCISION SITE 5/10 AT THIS TIME. PLAN OF CARE UPDATED AT BEDSIDE. LEFT HAND PIV PATENT, REMOVED USING ASEPTIC TECHNIQUE. PATIENT WITH ABDOMINAL BINDER IN PLACE. INCISION COVERED WITH DRESSING. NO DRAINAGE NOTED. SCD IN PLACE. REMOVED FOR SKIN ASSESSMENT. VSS. NO ADDITIONAL NEEDS NOTED. SIDE RAILS UP X 2, BED IN LOW POSITION, CALL LIGHT WITHIN REACH.
--- NOTE | 2020-06-22 10:47 | NUR ---
PATIENT UP AND SHOWERED. PATIENT COMPLAINS OF JUST FEELING TIRED AND INCISIONAL PAIN 4/10 POST SHOWER. DENIES PASSING GAS AT THIS TIME. BOWEL SOUNDS HEARD IN ALL 4 QUADRANTS. OCCASSIONAL GAS SOUNDS NOTED. PATIENT REPORTS FEELING GAS, WITH NO NEED TO PASS AT THIS TIME. SIDE RAILS UP X 2, BED IN LOW POSITION, CALL LIGHT WITHIN REACH.
[2020-06-22 15:06] VITALS: BP 106/56
[2020-06-22 19:20] VITALS: BP 112/54
--- NOTE | 2020-06-22 19:22 | NUR ---
PT REC'D IN BED AT THIS TIME. NO DISTRESS NOTED. RATES PAIN 5/10 ON PAIN SCALE. HYPOACTIVE BOWEL SOUNDS IN ALL QUADRANTS. CORRIE INTACT TO INCISION. NO S/S OF INFECTION NOTED. NO DISTRESS NOTED. Hilario TORRES RN
--- NOTE | 2020-06-22 20:30 | NUR ---
PT REC'D IN BED ON PHONE AT THIS TIME. STATES DECREASED PAIN. SEE PAIN REASSESSMENT ON MAY. NO DISTRESS NOTED. Hilario TORRES RN
--- NOTE | 2020-06-22 21:11 | NUR ---
PT GIVEN SCHEDULED MEDICATIONS AT THIS TIME. SEE MAR FOR ADMINISTRATION. Hilario CARROLL RN
--- NOTE | 2020-06-22 21:20 | NUR ---
pt out to ambulate at this time. christiano russo rn
--- NOTE | 2020-06-22 22:06 | NUR ---
PT BACK ON THE UNIT FROM WALK AT THIS TIME. NO DISTRESS NOTED AT THIS TIME. Hilario TORRES RN
[2020-06-23 00:11] VITALS: BP 113/54
--- NOTE | 2020-06-23 00:11 | NUR ---
pt rec'd in bed asleep at this time. easily awakened. vss. denies pain or needs. christiano russo rn
--- NOTE | 2020-06-23 02:05 | NUR ---
pt rec'd in bed asleep at this time. no distress noted. christiano raman rn
--- NOTE | 2020-06-23 04:10 | NUR ---
PT REC'D IN BED ASLEEP AT THIS TIME. NO DISTRESS NOTED. Hilario TORRES RN
[2020-06-23 06:02] VITALS: BP 127/64
--- NOTE | 2020-06-23 06:02 | NUR ---
PT REC'D IN BED AT THIS TIME. VSS. DENIES PAIN. SOME IMPROVEMENT IN BOWEL SOUNDS NOTED. NO NAUSEA/VOMITING NOTED. NO DISTRESS NOTED. Hilario TORRES RN
--- NOTE | 2020-06-23 07:18 | NUR ---
BEDSIDE REPORT FROM JAZLYN HUGHES. PT RESTING IN BED ON RIGHT SIDE, RESP EVEN AND UNLABORED. SRUx2, CL IN REACH. LIGHTS IN ROOM DIM FOR REST.
--- NOTE | 2020-06-23 08:27 | NUR ---
DR MORALEZ TO ROOM FOR ROUNDING WITH THIS RN. PT SITTING UP IN BED, EATING BREAKFAST. DR MORALEZ DISCUSSING POC AND D/C INSTRUCTIONS WITH PT. PT VERBALIZES UNDERSTANDING. PT REQUESTING PAIN MED FOR INCISIONAL PAIN RATED 6/10, STATES SHE WANTS TO TAKE BOTH MOTRIN AND NORCO. PRN PAIN MEDS ADMIN REQUESTED PER ORDER, WELL SCHEDULED AM MEDS. PT PROVIDED WITH SODA PER REQUEST, CONTINUES EATING BREAKFAST. DENIES FURTHER NEEDS AT THIS TIME. WILL ALLOW PT TO FINISH EATING AND RETURN FOR FULL SHIFT ASSESSMENT.
[2020-06-23 10:31] VITALS: BP 111/57
--- NOTE | 2020-06-23 10:31 | NUR ---
THIS RN TO ROOM FOR VS AND SHIFT ASSESSMENT. PT IN BED, RESTING ON RIGHT SIDE WITH EYES CLOSED, ALERTS THIS RN ENTERS ROOM. PT VERBALIZES PAIN RELIEF, RATES PAIN 2/10 AT THIS TIME. PT ENCOURAGED TO AMBULATE WHILE PAIN WELL CONTROLLED. PT STATES SHE PLANS TO GET UP TO SHOWER AND AMBULATE SOON. TOWELS AND CLOTHS PROVIDED, PT DENIES WANTING A CLEAN GOWN, STATES SHE WILL DRESS IN OWN CLOTHES FOR ANTICIPATED D/C TO HOME TODAY DISCUSSED WITH DR MORALEZ. PT DENIES NEED FOR ASSIST IN SHOWER, INSTRUCTED ON PULL CORD FOR DIZZINESS OR ANY NEEDS, UNDERSTANDING VERBALIZED. SHIFT ASSESSMENT COMPLETED, VSS, SEE FLOWSHEET FOR DOC. ABD INCISION REMAINS C/D WITH [facility] IN[facility]CT. PT DENIES ANY VAGINAL BLEEDING WHEN UP TO BATHROOM. INSTRUCTED TO REPORT ANY BLEEDING IF NOTED, UNDERSTANDING VERBALIZED. SRUx2, CL IN REACH.
--- NOTE | 2020-06-23 11:10 | NUR ---
THIS RN TO ROOM FOR PT CHECK. PT LYING IN BED, SUPINE, TYPING ON PHONE. PT STATES SHE IS ABOUT TO GET UP AND SHOWER, SITS UP IN BED. DENIES NEED FOR ASSIST. STATES IS AWARE OF PULL CORD IN BATHROOM IF IN NEED OF ASSIST OR DIZZY.
--- NOTE | 2020-06-23 11:50 | NUR ---
THIS RN TO ROOM FOR PT CHECK. PT UP AMBULATING IN ROOM, DRESSED IN OWN CLOTHES. DENIES ANY NEEDS AT THIS TIME, STATES SHE DOES NOT WANT DUE SIMETHICONE AT THIS TIME. STATES HER FAMILY WILL BE ON THEIR WAY TO PICK HER UP FOR D/C TO HOME SHORTLY. FANS DELIVERS LUNCH TRAY. PT STATES SHE IS ABOUT TO GO WALK.
--- NOTE | 2020-06-23 12:00 | NUR ---
DR MORALEZ GIVEN UPDATE THAT PT STATES SHE IS READY FOR D/C TO HOME AND FAMILY WILL BE ON THE WAY [place]. ORDER RECEIVED FOR D/C TO HOME.
[2020-06-23] MEDS ORDERED: IBUPROFEN800 MG PO (12:06)
[2020-06-23] MEDS ORDERED: HYDROCODON-ACE1 EA10 PO (12:06)
--- NOTE | 2020-06-23 12:30 | NUR ---
THIS RN TO ROOM FOR PT DISCHARGE TEACHING. PT SITTING UP ON BEDSIDE, EATING LUNCH. PT STATES DAUGHTER IS ON HER WAY TO PICK HER UP. WILL ALLOW PT TO FINISH EATING LUNCH AND RETURN FOR D/C TEACHING AFTER LUNCH.
--- NOTE | 2020-06-23 13:32 | NUR ---
THIS RN TO ROOM FOR D/C TEACHING. PT LYING IN BED ON RIGHT SIDE, RESP EVEN AND UNLABORED. SRUx2, CL IN REACH. PT LEFT UNDISTURBED FOR REST.
--- NOTE | 2020-06-23 14:38 | NUR ---
PT WET POUR MIXER LIGHT, NOTIFIES STAFF SHE IS READY FOR D/C TO HOME HER DAUGHTER IS HERE TO DRIVE HER. THIS RN TO ROOM. D/C TEACHING DONE, PRESCRIPTION GIVEN PROVIDED BY DR MOTTA. PT AND DAUGHTER VERBALIZE UNDERSTANDING, DENY QUESTIONS. PT SIGNS CHART COPIES, PT COPIES GIVEN. PT REQUESTING PAIN MEDS FOR LONG CAR RIDE HOME, RATES PAIN 5/10, WORSE WITH MOVEMENT. WILL ADMIN ORDERED.
--- NOTE | 2020-06-23 14:42 | NUR ---
PT ADMIN SCHEDULED GABAPENTIN AND PRN PAIN MEDS REQUESTED, SEE EMAR FOR DOC. PT DAUGHTER PULLING CAR TO MAIN ENTRANCE.
--- NOTE | 2020-06-23 14:48 | NUR ---
PT TAKEN TO PRIVATE VEHICLE FOR W/C FOR D/C TO HOME. PT DAUGHTER TO DRIVE HER HOME.
--- NOTE | 2020-06-30 16:11 | OP ---
PATIENT NAME: CHERRIE RIDDLE MEDICAL RECORD: [id number] :77 LOCATION:[id number] ADMISSION DATE:06/20/20 SURGEON: MAO TRUJILLO MD DATE OF OPERATION: 06/20/2020 PREOPERATIVE DIAGNOSES: 1. Pelvic pain. 2. Anemia. POSTOPERATIVE DIAGNOSES: 1. Pelvic pain. 2. Anemia. 3. Extensive pelvic adhesions. PROCEDURE: Exploratory laparotomy, lysis of adhesions, total abdominal hysterectomy, left salpingo-oophorectomy, and right salpingectomy. SURGEON: Mao Trujillo MD ANESTHESIA: General endotracheal. INTRAVENOUS FLUIDS: Per anesthesia record. ESTIMATED BLOOD LOSS: 300 cc. FINDINGS: 1. Extensive adhesive disease involving the bladder, anterior abdominal wall, and bilateral broad ligaments. 2. Grossly normal appearing ovaries bilaterally. COMPLICATIONS: None apparent. DESCRIPTION OF PROCEDURE: The patient was taken to the operating room where the patient was prepped and draped in normal sterile fashion in the dorsal supine position. Vaginal prep was performed and a Calvert catheter was placed. Following prep and drape, a Pfannenstiel skin incision was made, extended downward to the underlying subcutaneous fat to the level of the fascia. The fascia was then excised in the midline with the scalpel and extended bilaterally using the Ball scissors and Bovie cautery. The superior and inferior aspects of the fascial incision was then grasped with Ronaldo clamps, tented upward, and sharply dissected from the underlying rectus muscle using the Bovie cautery and the Ball scissors. Careful dissection of the rectus muscle in the midline revealed the intraperitoneal space. The right portion of the broad ligament was fused to the bladder, which was a cranially displaced and also complex to the anterior abdominal wall. Careful dissection was performed until a defect could be found in the posterior aspect of the broad ligament between the infundibulopelvic ligament and the uterine artery. At this point, a bladder flap was created by excising the scar tissue involving the posterior aspect of the bladder and the lower uterine segment. This was accomplished on the right and the proximal fallopian tube and uteroovarian ligament was clamped times 2 with curved Darin clamps. These were cut and suture ligated with 0 Vicryl. Attention was then turned to the right side of the uterus where the uterine vessels were skeletonized using the Metzenbaum scissors and DeBakeys until the uterine arteries were identified superior to the scarred bladder. A curved Darin clamp was placed across the right aspect of the uterine vessels. OPERATIVE REPORT [id number] CHERRIE RIDDLE Attention was then turned to the left adnexa where in a similar fashion careful dissection of the bladder was performed and dissection away from the anterior surface of the uterus. Dissection was then performed and a defect was made in the posterior leaf of the broad ligament, the proximal fallopian tube, and uteroovarian ligament were then clamped times 2, tied with 0 Vicryl suture and then suture ligated. The uterine arteries were then skeletonized on the left and a curved Darin clamp was placed across the left uterine artery. The bilateral uterine arteries were then cut and suture ligated using 0 Vicryl. Following further dissection of the bladder downward, straight Darin clamps were used to clamp and suture ligate the cardinal ligaments to the level of the uterosacral ligament. The uterosacral ligaments were identified and further dissection of the bladder was performed until the curved Darin clamps could be placed across the uterosacral ligaments at the left and right apex of the vagina. These were then cut and transfixed with 0 Vicryl sutures. A small portion of cervix was still noted to be present after excision of the uterus using the Diego scissors. This was tented upwards and dissected down to the level of the vagina and the last piece of cervix was circumferentially cut out using the Diego scissors. The vaginal apexes were then suture ligated and the vaginal cuff was repaired using 0 Vicryl in an interrupted fashion. Bleeding was noted on the left hand side of the pelvis and a portion of the left infundibulopelvic ligament was found to be bleeding. It was felt at that time that oversewing the lesion would compromise blood flow to the left ovary, so the left fallopian tube and ovary were removed by clamping across the infundibulopelvic ligament immediately adjacent to the tube and ovary. The infundibulopelvic ligament was then free tied with 0 Vicryl suture and then suture ligated distally with good hemostasis noted. The attention was then turned to several areas on the superior vesicular aspect of the bladder and several small venous bleeders were then cauterized. Counts were correct times 2 for needles, sponges, and instruments and all surgical sites were thoroughly irrigated and checked for hemostasis. Nicole powder was then placed on all the surgical sites. The patient had been given methylene blue and good blue urine output was being produced. The cuff was found to be hemostatic and the bladder free of any injuries. The fascia was repaired with 0 loop PDS times 1 and the skin was repaired with camille. The patient tolerated the procedure well and was transferred to postanesthesia recovery in stable without incident. TRANSINT:[id number] Voice Confirmation ID: [id number] DOCUMENT ID: [id number] MAO TRUJILLO MD at 1611 CC: [id number] DICTATION DATE: 06/29/20 1313 ART GALLERY INTERNSHIP: 06/29/20 1716 DIS IN 06/23/20 [facility] [address] [place] [address]
== END 2020-06-23 14:48 | disposition home or self-care (01) | DRG 743 ==
LOC: D.SDCHOLD 06-20 07:33 → D.LD 06-20 07:33 → D.SDCHOLD 06-20 09:30 → D.LD 06-23 14:48
PROVIDERS: ADMIT Obstetrics & Gynecology; ATTEND Obstetrics & Gynecology
PROC: 0UT90ZZ Resection of Uterus, Open Approach (ICD-10-PCS; principal; 2020-06-20 09:30)
PROC: 0UT10ZZ Resection of Left Ovary, Open Approach (ICD-10-PCS; 2020-06-20 09:30)
PROC: 0UB70ZZ Excision of Bilateral Fallopian Tubes, Open Approach (ICD-10-PCS; 2020-06-20 09:30)
DX: N93.9 Abnormal uterine and vaginal bleeding, unspecified (principal); D46.4 Refractory anemia, unspecified; R51.9 Headache, unspecified; Z87.891 Personal history of nicotine dependence; F41.9 Anxiety disorder, unspecified; N73.6 Female pelvic peritoneal adhesions (postinfective)